=== PATIENT | female | born 1970 | race African-American/Black ===

== ENCOUNTER 2019-02-22 12:03 | Emergency (ER) | payer BC, MEDICAID, OTHER ==
[~2019-02-22] VITALS: Ht 172.7 cm; Wt 123.0 kg
[2019-02-22] MEDS ORDERED: TETRACAINE 0.5% OPHTH DROPS 4ML OP ONE (14:45)
[2019-02-22] MEDS ORDERED: FLUORESCEIN SODIUM 1MG/STRIP OP ONE (14:45)
[2019-02-22] MEDS ORDERED: BACITRACIN ZINC OINT UDPKT TOP ONE (14:45)
[2019-02-22] MEDS ORDERED: HYDROCODONE/ACETAMINOPHEN 5/325MG TABLET PO ONE (15:00)
[2019-02-22] MEDS ORDERED: BACITRACIN 15GM TUBE TOP NR (15:15)
[2019-02-22] MEDS ORDERED: CLONIDINE 0.1MG TABLET PO ONE (16:15)
[2019-02-22] MEDS ORDERED: AMLODIPINE 10MG TABLET PO ONE (16:15)
[2019-02-22] MEDS ORDERED: KETOROLAC 60MG/2ML VIAL IM ONE (17:00)
[2019-02-22 17:36] VITALS: BP 187/107
== END 2019-02-22 17:38 | disposition home or self-care (01) ==
LOC: ER 12:03
DX: H18.822 Corneal disorder due to contact lens, left eye (principal); I10 Essential (primary) hypertension; Z98.1 Arthrodesis status; Z98.890 Other specified postprocedural states
CPT/HCPCS: 96372; 99284; J1885

== ENCOUNTER 2021-07-21 07:19 | Emergency (ER) | payer MEDICAID ==
[~2021-07-21] VITALS: Ht 172.7 cm; Wt 118.0 kg
[2021-07-21 07:45] VITALS: BP 181/110
[2021-07-21] MEDS ORDERED: IBUPROFEN 400MG TABLET PO ONE (07:45)
[2021-07-21] MEDS ORDERED: IBUP-2028 PO (08:38)
== END 2021-07-21 09:08 | disposition home or self-care (01) ==
LOC: ER 07:19
DX: S93.401A Sprain of unspecified ligament of right ankle, initial encounter (principal); I10 Essential (primary) hypertension; J45.909 Unspecified asthma, uncomplicated; Z98.890 Other specified postprocedural states; Z96.659 Presence of unspecified artificial knee joint; W10.8XXA Fall (on) (from) other stairs and steps, initial encounter; Y93.89 Activity, other specified; Y92.018 Other place in single-family (private) house as the place of occurrence of the external cause
CPT/HCPCS: 73590; 73600; 99284